=== PATIENT | female | born 1990 | race Caucasian/White ===

== ENCOUNTER 2021-02-13 13:37 | Emergency (ER) | payer OTHER ==
[~2021-02-13 13:37] MED LIST: ASPIRIN 325MG325 MG PO; KEFLEX CAP 500500 MG PO
[2021-02-13 16:37] LABS: HEMOGLOBIN 13.6 gm/dl (12.3-15.3); RED BLOOD COUNT 4.7 M/UL (4.00-5.10); WHITE BLOOD COUNT 12.4 K/UL (4.5-11.0)
[2021-02-13 16:45] LABS: BUN/CREATININE RATIO 16 (0-10)
[2021-02-13] MEDS ORDERED: CYCLOBENZAPRINE5 MG PO (18:37)
[2021-02-13] MEDS ORDERED: NAPROSYN500 MG PO (18:37)
== END 2021-02-13 18:55 | disposition home or self-care (01) ==
LOC: ER1 13:37
PROVIDERS: Physician Assistant
DX: R07.89 Other chest pain (principal); F17.210 Nicotine dependence, cigarettes, uncomplicated; F41.9 Anxiety disorder, unspecified
CPT/HCPCS: 71045; 80053; 81001; 82550; 82553; 83690; 83874; 84484; 84703; 85025; 85379; 93005; 96374; 99285; J1885

== ENCOUNTER → 2022-05-30 | Outpatient (CLI) | payer OTHER ==
[~2022-05-30] MED LIST changes: +CYCLOBENZAPRINE5 MG PO; +NAPROSYN500 MG PO
== END ==
LOC: EXRD 10:30
DX: R79.89 Other specified abnormal findings of blood chemistry (principal)
CPT/HCPCS: 76700